=== PATIENT | female | born 1975 | race Caucasian/White ===

== ENCOUNTER 2020-12-29 22:14 | Emergency (ER) | payer BC, OTHER ==
[2020-12-29] MEDS ORDERED: ACETAMINOPHEN 500 MG TABLET (FP) ONE (22:20)
[2020-12-29] MEDS ORDERED: ACETAMINOPHEN 500 MG TABLET (FP) PO ONE (22:20)
[2020-12-29 22:30] VITALS: BP 138/75; PULSE 84; BMI 32.9
== END 2020-12-29 23:09 | disposition home or self-care (01) ==
LOC: FER 22:14
DX: S09.90XA Unspecified injury of head, initial encounter (principal)
CPT/HCPCS: 70450-TC; 99284-25